=== PATIENT | female | born 1950 | race Caucasian/White ===

== ENCOUNTER 2019-03-05 14:51 | Inpatient (IN) ==
[2019-03-05] MEDS ORDERED: DILAUDID IV ONE (15:28)
[2019-03-05] MEDS ORDERED: PHENERGAN IM ONE (15:28)
--- NOTE | 2019-03-05 15:55 | Diag Imaging Result Doc PS360 ---
EXAM: ANKLE COMPLETE RIGHT HISTORY: fall TECHNIQUE: Right ankle, three views COMPARISON: None. FINDINGS: There is an oblique fracture through the distal fibula with mild displacement. Soft tissue swelling is present. No definite fracture to the distal tibia. There are calcaneal bone spurs. IMPRESSION: Distal fibular fracture. Electronically signed by Arjun Kern 03/05/2019 3:53 PM
--- NOTE | 2019-03-05 15:57 | Diag Imaging Result Doc PS360 ---
EXAM: TRAUMA SHOULDER LEFT HISTORY: fall TECHNIQUE: Left shoulder, two views COMPARISON: 11/02/2012 FINDINGS: There is a comminuted humeral head and neck fracture. The humeral shaft is displaced anteriorly. Portions of the humeral head remains in the glenoid. No separation to the acromioclavicular joint. IMPRESSION: Comminuted humeral head and neck fracture. Electronically signed by Arjun Kern 03/05/2019 3:55 PM
[2019-03-05 17:34] LABS: BASO# 0.03 X1000 (0.0-0.2); BASO% 0.2 % (0.0-0.8); EOS# 0.06 X1000 (0.0-0.7); EOS% 0.4 % (0.0-10.0); HEMATOCRIT 40.3 % (37.0-47.0); HEMOGLOBIN 13.2 g/dL (12.0-16.0); IMM GRAN# 0.02 X1000 (0.0-0.04); IMM GRAN% 0.1 % (0.0-0.5); LYMPH# 0.94 X1000 (1.2-3.4); LYMPH% 6.9 % (20.5-51.1); MCH 27.6 PG (27-31); MCHC 32.8 g/dL (33-37); MCV 84.1 FL (81-99); MONO# 0.64 X1000 (0.11-0.59); MONO% 4.7 % (1.7-9.3); MPV 11.8 FL (7.4-10.4); NEUT# 11.96 X1000 (1.4-6.5); NEUT% 87.7 % (42.2-75.2); PLT 273 X1000 (130-400); RBC 4.79 XMIL (4.2-5.4); RDW 13.9 % (11.5-14.5); WBC 13.65 X1000 (4.8-10.8)
[2019-03-05 17:45] LABS: AGAP 6; ALB/GLOB RATIO 1.2; ALBUMIN 3.8 g/dL (3.5-5.0); ALKALINE PHOSPHATASE 103 U/L (32-104); BUN 13 mg/dL (8-22); CALCIUM 9.3 mg/dL (8.8-10.2); CHLORIDE 105 mmol/L (98-107); COSMO 285; CREATININE 0.7 mg/dL (0.5-0.9); ESTIMATED GFR > 60; GLUCOSE 135 mg/dL (70-104); GOT 18 U/L (10-30); GPT 11 U/L (10-36); POTASSIUM 3.6 mmol/L (3.5-5.1); SODIUM 142 mmol/L (136-145); TCO2 31 mmol/L (25-35); TOTAL BILIRUBIN 0.15 mg/dL (0.20-1.00)
[2019-03-05] MEDS ORDERED: ULTRAM PO PRN (17:46)
--- NOTE | 2019-03-05 17:58 | PROVIDER DOCUMENTATION ---
This chart was entered by Jenni Hendricks Scribe, acting as scribe for Kayla Phillips MD. HPI-Musculoskeletal Pain/Inj - GENERAL Chief Complaint: Fall Stated Complaint: FALL Time Seen by Provider: 03/05/19 15:32 Source: patient - HX OF PRESENT ILLNESS-MUSKULOSKELTAL Nature of Presenting Problem: Patient is a 68 year old female who presents with left shoulder and right ankle pain after a fall. Patient states she lost her balance and fell back. Denies neck pain. States hit head. Denies LOC. Quality of Pain: reports: aching Severity in ED: mild Onset/Duration: just prior to arrival Timing: still present Modifying Factors: worse with: movement Any recent injury?: Yes (fall) Similar Symptoms Previously?: No Recently seen or treated by another doctor?: No - FALL INJURY Location of Pain/Injury: reports: upper extremity (left shoulder), lower extremity (right ankle) Pain Radiation: reports: no radiation Reason for Fall: reports: lost balance Symptoms prior to fall:: reports: none Loss of Consciousness: no loss of consciousness Injury Associated Symptoms: reports: denies symptoms - LOWER EXTREMITY PAIN/INJURY Lower Extremities Pain: ankle: right Context / Method of Injury: reports: fell Associated Symptoms: reports: denies symptoms - UPPER EXTREMITY PAIN/INJURY Extremities Pain Location: shoulder: left Context / Method of Injury: reports: fell Associated Symptoms: reports: denies symptoms Review of Systems - Adult - REVIEW OF SYSTEMS - ADULT Constitutional: reports: no symptoms reported. denies: chills, fever, fatique Eyes: reports: no symptoms reported Ears, Nose, Mouth & Throat: reports: no symptoms reported Cardiovascular: reports: no symptoms reported Respiratory: reports: no symptoms reported Gastrointestinal: reports: no symptoms reported Genitourinary: reports: no symptoms reported Musculoskeletal: reports: see HPI, other (left shoulder and right ankle pain). denies: back pain, neck pain Integumentary: reports: no symptoms reported Neurological: reports: see HPI, other (head injury without LOC.). denies: dizziness/vertigo, headache/migraines, numbness, seizure, syncope Psychiatric: reports: no symptoms reported Endocrine: reports: no symptoms reported Hematologic/Lymphatic: reports: no symptoms reported Allergic/Immunologic: reports: no symptoms reported All Other Systems: Reviewed and Negative Past History - Adult - PAST MEDICAL HISTORY-ADULT Review of Records: reports: Nursing Assessment Review, Medications Reviewed, Social history reviewed & non-contributory. Major Childhood Illnesses: reports: denies history Cardiovascular: reports: heart valve problem, hyperlipidemia, other (mitral valve prolapse) Respiratory: reports: sleep apnea Gastrointestinal: reports: GERD, IBS Obstetrical/Gynecological: reports: denies history Genitourinary: reports: kidney stones Musculoskeletal: reports: neck/back injury (neck surgery) Neurological: reports: denies history. denies: CVA, stroke deficits Endocrine/Immune: reports: denies history Other Conditions: reports: denies history - PRIOR SURGERIES/PROCEDURES Surgical/Procedure History: reports: cholecystectomy, hysterectomy, other (bladder surgery) - PRIOR HOSPITALIZATIONS Prior Hospitalizations: reports: none - IMMUNIZATION STATUS Childhood Immunizations: See Nurse Assessment Flu Vaccine: See Nurse Assessment - FAMILY HISTORY Family History: reviewed, not pertinent - SOCIAL HISTORY Smoking: denies Substance Use: denies Living Situation: family Physical Exam-Injury Related - Physical Exam-Injury Related Initial Vital Signs Reviewed: Yes General Appearance: alert, mild distress. negative: lethargic, slow to respond Neck: non-tender, normal inspection. negative: C-spine tenderness, limited range of motion, tender lateral Respiratory: chest non-tender, lungs clear, normal breath sounds. negative: crackles, rhonchi, wheezing Cardiovascular: normal peripheral pulses, regular rate, rhythm. negative: tachycardia, systolic murmur Abdominal Exam: normal bowel sounds, non tender, soft. negative: guarding, rebound Extremity: swelling (right ankle), tenderness (left shoulder), other (limited ROM of left shoulder due to pain.). negative: deformity, erythema Integumentary: normal color, warm/dry. negative: ecchymosis, erythema, jaundice, abrasion, laceration Neurologic: grossly normal. negative: aphasia, facial droop Psych/Mental Status: normal mood/affect, oriented x 3. negative: anxious Progress - PLAN OF CARE/RESULTS Progress/Plan/Lab Results: Vital Signs - 8 hr 03/05/19 14:58 03/05/19 15:21 03/05/19 15:29 Temperature 97.9 F Pulse Rate 68 Respiratory Rate 21 Blood Pressure 96/60 129/111 133/70 O2 Sat by Pulse Oximetry 98 100 99 03/05/19 15:31 03/05/19 15:40 03/05/19 15:50 Temperature Pulse Rate Respiratory Rate Blood Pressure O2 Sat by Pulse Oximetry 100 100 97 03/05/19 16:00 03/05/19 16:02 03/05/19 16:10 Temperature Pulse Rate Respiratory Rate Blood Pressure 140/79 O2 Sat by Pulse Oximetry 98 95 95 03/05/19 16:20 03/05/19 16:30 03/05/19 16:31 Temperature Pulse Rate Respiratory Rate Blood Pressure 153/96 O2 Sat by Pulse Oximetry 97 99 98 03/05/19 16:41 03/05/19 16:50 03/05/19 16:51 Temperature Pulse Rate Respiratory Rate Blood Pressure 153/96 O2 Sat by Pulse Oximetry 95 99 93 L 03/05/19 17:00 03/05/19 17:10 03/05/19 17:20 Temperature Pulse Rate Respiratory Rate Blood Pressure O2 Sat by Pulse Oximetry 91 L 100 100 Laboratory Results - last 24 hr 03/05/19 03/05/19 17:05 17:05 WBC 13.65 H RBC 4.79 Hgb 13.2 Hct 40.3 MCV 84.1 MCH 27.6 MCHC 32.8 L RDW Std Deviation 13.9 Plt Count 273 MPV 11.8 H Immature Gran % (Auto) 0.1 Neut % (Auto) 87.7 H Lymph % (Auto) 6.9 L [place] % (Auto) 4.7 Eos % (Auto) 0.4 Baso % (Auto) 0.2 Immature Gran # (Auto) 0.02 Neut # (Auto) 11.96 H Lymph # (Auto) 0.94 L [place] # (Auto) 0.64 H Eos # (Auto) 0.06 Baso # (Auto) 0.03 Sodium 142 Potassium 3.6 Chloride 105 Carbon Dioxide 31 Anion Gap 6 BUN 13 Creatinine 0.7 Estimated GFR/1.73 m2 > 60 BUN/Creatinine Ratio 19 Glucose 135 H Calculated Osmolality 285 Calcium 9.3 Total Bilirubin 0.15 L AST 18 ALT 11 Alkaline Phosphatase 103 Total Protein 7.0 Albumin 3.8 Globulin 3.2 Albumin/Globulin Ratio 1.2 Orders Category Date Time Status Admit - [facility] Routine AdmDCTranf 03/05/19 17:54 Active Nursing- MD Consult Request ROUTINE Care 03/05/19 17:48 Active MD [Physician/Provider Consults] Routine Cons 03/05/19 17:47 Ordered Regular Diet Diet 03/05/19 17:54 Active ANKLE COMPLETE RIGHT [RAD] Stat Exams 03/05/19 15:26 Completed CHEST-PORTABLE [RAD] Stat Exams 03/05/19 17:54 Ordered TRAUMA SHOULDER LEFT [RAD] Stat Exams 03/05/19 15:27 Completed CBC WITH ELECTRONIC DIFF [HEME] Stat Lab 03/05/19 17:05 Completed CMP [COMPREHENSIVE METABOLIC PANEL] [CHEM] Stat Lab 03/05/19 17:05 Completed TYPE & SCREEN [BBK] Stat Lab 03/05/19 17:23 Results 0.9% Sodium Chloride Inj [Ns] 1,000 ml Med 03/05/19 18:00 Active IV 50 mls/hr Acetaminophen [Tylenol] Med 03/05/19 17:54 Active 650 mg PO Q6H PRN PRN Gabapentin [Neurontin] Med 03/06/19 09:00 Active 300 mg PO TID Hydromorphone [Dilaudid] Med 03/05/19 15:28 Discontinued 1 mg IV NOW ONE Hydromorphone [Dilaudid] Med 03/05/19 17:46 Active 1 mg IV Q3H PRN PRN Ondansetron [Zofran] Med 03/05/19 17:54 Active 4 mg IV Q4H PRN PRN Pantoprazole [Protonix] Med 03/06/19 07:00 Active 40 mg PO DAILY@0700 Promethazine [Phenergan] Med 03/05/19 17:46 Active 12.5 mg IV Q4H PRN PRN Promethazine [Phenergan] Med 03/05/19 15:28 Discontinued 25 mg IM NOW ONE Sodium Chloride 0.9% Med 03/05/19 17:46 Active 10 ml INJ PRN PRN Tramadol [Ultram] Med 03/05/19 17:46 Active 50 mg PO Q6H PRN PRN EKG [EKG] Stat Ther 03/05/19 17:15 Ordered Transfer/Admit Order [TRANSFER] Routine Transfer 03/05/19 17:49 Ordered 3114 - ADY Segura for Hospitalist, states patient needs labs. 1801 - Dr. Phillips consulted with ADY Mathew for Hospitalist, about patient. Dr. Acosta accepted patient. Result Diagrams: 03/05/19 17:05 03/05/19 17:05 - EKG 1 Time of EKG reading by physician:: 17:21 EKG Read and Signed by:: Kayla Phillips EKG Interpretation (*Must complete 3 of following elements*): Normal Rate: 83 Rhythm: normal sinus rhythm [place]: normal QRS: normal VT Interval: normal ST Wave: normal Comments: normal ECG - XRAY 1 XRAY: Left XRAY Study: Shoulder Impression: See EMR Report ( EXAM: TRAUMA SHOULDER LEFT HISTORY: fall TECHNIQUE: Left shoulder, two views COMPARISON: 11/02/2012 FINDINGS: There is a comminuted humeral head and neck fracture. The humeral shaft is displaced anteriorly. Portions of the humeral head remains in the glenoid. No separation to the acromioclavicular joint. IMPRESSION: Comminuted humeral head and neck fracture. Electronically signed by Arjun Kern 03/05/2019 3:55 PM 03/05/19 1555 Interpreting Physician: Arjun Kern MD Dictated Date/Time: 03/05/19 1554 cc: Kayla Phillips MD; Dru Eduardo MD) 2 XRAY: Right XRAY Study: Ankle Impression: See EMR Report ( EXAM: ANKLE COMPLETE RIGHT HISTORY: fall TECHNIQUE: Right ankle, three views COMPARISON: None. FINDINGS: There is an oblique fracture through the distal fibula with mild displacement. Soft tissue swelling is present. No definite fracture to the distal tibia. There are calcaneal bone spurs. IMPRESSION: Distal fibular fracture. Electronically signed by Arjun Kern 03/05/2019 3:53 PM 03/05/19 1553 Interpreting Physician: Arjun Kern MD Dictated Date/Time: 03/05/19 1552 cc: Kayla Phillips MD; Dru Edaurdo MD) - CONSULTS/PCP/HOSPITALIST Notification #1 *Consult/PCP/Hospitalist*: ADY Mathew for Hospitalist Time Discussed: 16:42 Reason/Comments: Dr. Phillips consulted with Priyanka about patient. Consult Disposition: other (consult with ortho) #2 Consult: Dr. Liu Time Discussed: 16:51 Reason/Comments: Dr. Phillips consulted Dr. Liu about patient. Consult Disposition: other (Dr. Liu states he will consult on patient.) #3 Consult: ADY Mathew for Hospitalist Time Discussed: 17:10 Reason/Comments: Dr. Phillips consulted with Priyanka about patient. Consult Disposition: Will see in ED, Admit Departure - Departure Date of Disposition Decision: 03/05/19 Time of Disposition Decision: 18:03 DIAGNOSIS: Fracture of left humerus, Fracture of right fibula, Abrasion head Disposition: ADMITTED INPATIENT 09 Certified Medical Emergency: Urgent Condition: Good Referrals and Follow-Ups: Dru Eduardo MD [Primary Care Provider] - - Critical Care Note This patient required my direct & personal management of CC.: No Attestation - Physician/ GERDA Attestation The physician spent face to face time with patient:: Yes Advanced Practice Provider documentation review:: Supervising physician onsite and consulted in the evaluation and care of this patient. The physician did have a face to face encounter with the patient. This chart was documented by the indicated scribe, (Jenni Hendricks Scribe) and accurately reflects the services I performed and decisions made by me, Kayla Phillips MD, as attested by the provider's signature.
[2019-03-05] MEDS ORDERED: NS 1,000 ML IV SCH (18:00)
--- NOTE | 2019-03-05 18:22 | Diag Imaging Result Doc PS360 ---
EXAM: CHEST-PORTABLE HISTORY: r/o pna TECHNIQUE: Chest single view COMPARISON: 10/02/2017 FINDINGS: The lungs are well expanded. The heart is not enlarged. The vessels are not distended. There are left basilar infiltrates. No effusion identified. IMPRESSION: Left basilar pneumonia. Electronically signed by Arjun Kern 03/05/2019 6:19 PM
[2019-03-05] MEDS ORDERED: OXY IR PO SCH (19:00)
--- NOTE | 2019-03-05 19:14 | HISTORY AND PHYSICAL ---
ADDENDUM: I agree with most components of history, physical, assessment and plan. In brief, Ms. Mansfield is a 68-year-old lady, with past medical history of chronic gastroesophageal reflux disease and neuropathy, who came in after a mechanical fall. She was found to have a distal fibular fracture on the right lower extremity, as well as comminuted humeral head and neck fracture on the left. She also has prior history of obstructive sleep apnea. Currently, patient is in pain because of left shoulder and right ankle pain. She denies any syncope episodes. She states that she just came out of her truck and missed a step and fell down. PHYSICAL EXAMINATION: VITAL SIGNS: Temperature 97.9 degrees, pulse 68, blood pressure 150/90, saturating 100% on room air. GENERAL: She is in mild distress because of pain. HEENT: Oral cavity is moist. No pharyngeal congestion on antibiotic. LUNGS: No wheeze, rhonchi, crackles. HEART: S1, S2 normal. No murmur, rub, or gallop. ABDOMEN: Soft, nontender. EXTREMITIES: She does have right ankle edema where she has fracture and that is tender to palpation. Her left upper extremity is in flexion at elbow joint as well as adduction at shoulder joint. She has intact dorsalis pedis and radial pulses. She is able to wiggle both lower extremity and upper extremity toes.. LABS: Significant for mild leukocytosis. Normal hemoglobin, hematocrit, and platelet count. Normal electrolytes. MICROBIOLOGY: No data. IMAGING: Ankle x-ray suggests distal fibular fracture. Shoulder x-ray suggests a comminuted humeral head and neck fracture on the left. Chest x-ray suggests lungs are well expanded. The heart is not enlarged. The vessels are not distended. There is left basilar infiltrate without any effusion. ASSESSMENT AND PLAN: 1. Left lower lobe pneumonia with persistent cough of about 2 weeks duration and subjective feeling of shortness of breath. 2. Mechanical fall with distal fibular fracture on the right and left-sided comminuted humeral head fracture. 3. Obstructive sleep apnea. PLAN: 1. I will start patient on intravenous ceftriaxone and azithromycin. 2. I will keep her on intravenous fluids. 3. We will give her intravenous and oral pain medications as needed. 4. Continue home CPAP. 5. Pending orthopedic recommendations for surgery over left shoulder fracture. 4. Plan of care discussed with the patient and her daughter at bedside. All of their questions have been answered. cc: Arturo Acosta MD MTDD
--- NOTE | 2019-03-05 19:38 | HISTORY AND PHYSICAL ---
PRIMARY CARE PROVIDER: Dr. Dru Eduardo. CHIEF COMPLAINT: Fall with left shoulder and right ankle pain. HISTORY OF PRESENT ILLNESS: Ms. Aleisha Mansfield is a 68-year-old female with a medical history of obstructive sleep apnea with CPAP at night, stool incontinence recently being worked up by Dr. Suero, GERD, history of upper GI bleed who is now here with complaints of having a fall where she was getting out of a truck, helping her daughter with metal scraps but essentially lost her footing and went rolling down a hill, felt her left shoulder pop and felt her right ankle with pain afterwards. Dr. Liu has been notified by the ER physician and staff after imaging was performed, which shows distal fibular fracture on the right ankle and then on the left shoulder a comminuted humeral head and neck fracture. So we will admit the patient for pain control at this time and consult Dr. Liu. PAST MEDICAL HISTORY: 1. Migraines. 2. Frequent urinary tract infections. 3. Frequent infected sebaceous cysts. 4. GERD. 5. Incontinence of stool, currently being worked up by Dr. Suero. Clostridium difficile studies earlier this month were negative. 6. Hypoglycemia. 7. Obstructive sleep apnea; wears CPAP at night. 8. History of upper GI bleed. PAST SURGICAL HISTORY: 1. Recent colonoscopy earlier this month. 2. Cervical surgery requiring plates and bone placement. 3. Bladder surgery x 2. 4. Hysterectomy. 5. section. 6. Teo fundoplication in 1998. 7. Laparoscopic cholecystectomy. SOCIAL HISTORY: Denies alcohol, tobacco or illicit drug use. She lives at home with her who has mild dementia. He is a retired preacher. FAMILY HISTORY: Father of an acute myocardial infarction at age 57. Mother had multiple strokes, vascular dementia and when she , they found kidney cancer. ALLERGIES: Codeine, hydrocodone, Versed, penicillin, sulfa. HOME MEDICATIONS: 1. Neurontin 300 mg p.o. t.i.d. 2. Protonix 40 mg p.o. daily. REVIEW OF SYSTEMS: A 14-point review of systems was completed and all are negative except for those mentioned above in HPI. She states she has had over the past month some upper chest congestion that has caused her to have frequent coughing and chest wall pain from the frequent coughing. She said that has actually started clearing up over the last 24 hours. Complains of a great deal of pain in her left shoulder and her right ankle. Otherwise no other complaints. PHYSICAL EXAMINATION: VITAL SIGNS: Temperature 97.9 degrees, heart rate 68, respiratory rate 21, blood pressure 153/96, oxygen saturation 100% on room air. Height 5 feet 9 inches, weight 184 pounds with BMI of 27.7. GENERAL: Ms. Aleisha Mansfield is a 68-year-old female. She is in no acute distress other than the pain she is feeling from the fractures. She is able to answer questions appropriately. HEENT: Atraumatic, normocephalic. Pupils equal, round and reactive to light. Extraocular movements intact. Mucous membranes are dry. NECK: Trachea is midline. CARDIOVASCULAR: S1, S2. Regular rate and rhythm. No murmurs, rubs or gallops. No lower extremity edema except for right ankle swelling and left shoulder swelling. Negative for JVD or carotid bruits. PULMONARY: Clear to auscultate bilateral breath sounds. No accessory muscle use or work of breathing noted. GI: Soft, nontender, nondistended. Positive bowel sounds x 4. EXTREMITIES: Full range of motion of the left lower extremity and right upper extremity. Limited movement of the left upper extremity and the right lower extremity secondary to fractures. NEUROLOGICAL: Alert and oriented x 3. Follows commands. Sensory is intact. SKIN: Warm, dry and intact. LABORATORY DATA: White blood cell count 13,000, hemoglobin 13, hematocrit 40, platelet count 273. Sodium 142, potassium 3.6, BUN 30, creatinine 0.7, glucose 135, calcium 9.3, bilirubin 0.15, AST 18, ALT 11, albumin 3.8. IMAGING: Complete right ankle x-rays show distal fibular fracture. Left shoulder 2 views trauma shoulder x-ray shows comminuted humeral head and neck fracture. ASSESSMENT AND PLAN: 1. Mechanical fall; patient lost her balance and went rolling down a hill resulting in 2 separate fractures. 2. Comminuted humeral head and neck fracture of the left shoulder. Right distal fibular fracture of the right ankle. Dr. Liu has been consulted. We will order medications for pain control. We will do oral Ultram and then IV Dilaudid for now. Phenergan and Zofran for nausea control. Apparently narcotics really make her nauseated. 3. Recent stool incontinence. Being worked up by Dr. Suero earlier this month. She was unable to give a specific diagnosis. He has apparently done several microbiology labs. Clostridium difficile toxin and antigen were both negative. The ova and parasites and trichogram stain are both negative. Cryptosporidium is negative. Apparently she had a colonoscopy earlier this month. She was unclear as to what the results were. 4. Gastroesophageal reflux disease. We will continue her oral Protonix daily. 5. History of upper GI bleed but hemoglobin and hematocrit are stable. 6. Obstructive sleep apnea. Wears CPAP at night. We will continue her home CPAP. 7. Leukocytosis, like inflammatory response to the fractures. 8. DVT prophylaxis. We will use sequential compression devices for now. Dictated by ADY Johansen for Arturo Acosta MD cc: ADY Johansen MD I agree with most components of history, physical, assessment and plan. A separate addendum has been dictated. MTDKaiden
[2019-03-05] MEDS: ZOFRAN IV PRN (19:43)
[2019-03-05] MEDS: DILAUDID IV PRN ×2 (19:43→23:19)
[2019-03-05] MEDS: TYLENOL PO PRN (20:37)
[2019-03-05] MEDS: LEVAQUIN 750 MG/D5W 750 MG/150 ML IVPB IV SCH (20:38)
[2019-03-05] MEDS: SODIUM CHLORIDE 0.9% INJ PRN (23:19)
[2019-03-05] MEDS: PHENERGAN IV PRN (23:19)
[2019-03-06] MEDS ORDERED: CALMOSEPTINE OINTMENT TOP PRN (01:08)
[2019-03-06] MEDS: DILAUDID IV PRN ×5 (03:17→20:56)
[2019-03-06] MEDS: PHENERGAN IV PRN ×5 (03:17→20:58)
[2019-03-06] MEDS: SODIUM CHLORIDE 0.9% INJ PRN ×4 (03:17→17:32)
[2019-03-06 03:36] LABS: URINE SOURCE CLEAN CATCH
[2019-03-06 03:38] LABS: BILIRUBIN URINE NEGATIVE (NEGATIVE); BLOOD URINE NEGATIVE (NEGATIVE); COLOR YELLOW; GLUCOSE URINE TRACE mg/dL (NEGATIVE); KETONE URINE NEGATIVE (NEGATIVE); LEUKOCYTES URINE LARGE (NEGATIVE); NITRITE URINE NEGATIVE (NEGATIVE); PROTEIN URINE TRACE mg/dL (NEGATIVE); TURBIDITY URINE CLEAR (CLEAR); UROBILINOGEN URINE NORMAL (NORMAL)
[2019-03-06 03:40] LABS: UR EPITHELIAL CELLS <10 /HPF (<10); URINE BACTERIA NEGATIVE /HPF; URINE RBC <10 /HPF (<10); URINE WBC 20-40 /HPF (<10)
[2019-03-06 06:25] LABS: BASO# 0.02 X1000 (0.0-0.2); BASO% 0.2 % (0.0-0.8); EOS# 0.03 X1000 (0.0-0.7); EOS% 0.3 % (0.0-10.0); HEMATOCRIT 35.5 % (37.0-47.0); HEMOGLOBIN 11.3 g/dL (12.0-16.0); LYMPH# 1.42 X1000 (1.2-3.4); LYMPH% 12.8 % (20.5-51.1); MCHC 31.8 g/dL (33-37); MCV 84.9 FL (81-99); MONO# 0.73 X1000 (0.11-0.59); MONO% 6.6 % (1.7-9.3); MPV 11.6 FL (7.4-10.4); NEUT# 8.91 X1000 (1.4-6.5); NEUT% 80.1 % (42.2-75.2); PLT 243 X1000 (130-400); RBC 4.18 XMIL (4.2-5.4); RDW 13.8 % (11.5-14.5); WBC 11.11 X1000 (4.8-10.8)
[2019-03-06 06:36] LABS: INR 1.02; PROTIME 14.2 Seconds (11.0-16.0); PTT 25.6 Seconds (22.3-41.8)
[2019-03-06 06:47] LABS: AGAP 8; ALB/GLOB RATIO 1.3; ALBUMIN 3.5 g/dL (3.5-5.0); ALKALINE PHOSPHATASE 94 U/L (32-104); BUN 9 mg/dL (8-22); CALCIUM 8.4 mg/dL (8.8-10.2); CHLORIDE 105 mmol/L (98-107); COSMO 276; CREATININE 0.5 mg/dL (0.5-0.9); ESTIMATED GFR > 60; GLUCOSE 128 mg/dL (70-104); GOT 16 U/L (10-30); GPT 7 U/L (10-36); MAGNESIUM 1.9 mg/dL (1.5-2.7); POTASSIUM 3.6 mmol/L (3.5-5.1); SODIUM 138 mmol/L (136-145); TCO2 25 mmol/L (25-35); TOTAL BILIRUBIN 0.42 mg/dL (0.20-1.00); TOTAL PROTEIN 6.3 g/dL (6.3-8.3)
--- NOTE | 2019-03-06 07:42 | EKG Report ---
Test Performed on : 03/05/2019 5:21:26 PM Test Reason : rythm evaluation Blood Pressure : / mmHG Vent. Rate : 083 BPM Atrial Rate : 083 BPM P-R Int : 146 ms QRS Dur : 080 ms QT Int : 412 ms P-R-T Axes : 065 002 043 degrees QTc Int : 484 ms Normal sinus rhythm. Normal ECG When compared with ECG of 02-OCT-2017 12:19, No significant change was found Unconfirmed Result
[2019-03-06] MEDS: NEURONTIN PO SCH ×3 (08:18→20:58)
[2019-03-06] MEDS: PROTONIX PO SCH (08:19)
--- NOTE | 2019-03-06 08:42 | ORTHOPAEDICS CONSULTATION ---
DATE: 03/06/2019 HISTORY OF PRESENT ILLNESS: Ms. Mansfield is a 68-year-old female who fell yesterday, on 03/05/2019. She was found to have a left proximal humerus fracture and a right ankle fracture. She was admitted per the hospitalist service secondary to not having a lot of help at home and possibly requiring rehab assistance. She mainly complains of pain at the right ankle and the left shoulder. She did hit her head a little bit but she says that it really does not bother her that much at this point. PAST MEDICAL HISTORY: Urinary tract infections, reflux, obstructive sleep apnea, stool incontinence. PAST SURGICAL HISTORY: Colonoscopy, anterior cervical diskectomy and fusion, two bladder surgeries, section, hysterectomy, cholecystectomy. SOCIAL HISTORY: She denies tobacco or alcohol use. FAMILY HISTORY: Positive for heart problems. ALLERGIES: Codeine, hydrocodone, Versed, penicillin, and sulfa. HOME MEDICATIONS: Neurontin and Protonix. REVIEW OF SYSTEMS: Positive for left shoulder pain and right ankle pain. All other systems are essentially negative. PHYSICAL EXAMINATION: General: Well-developed female. She is lying in bed this morning, in no acute distress. Head and Neck: Normocephalic, atraumatic. Respirations: Nonlabored breathing. Cardiovascular: Regular pulse. Abdomen: Nondistended. Right Lower Extremity Examination: She has tenderness to palpation all around the ankle, swelling all around the ankle. There are some ecchymoses laterally. I do not see any open areas. She is able to move her toes. She has good sensation to light touch to the toes and a 2+ DP pulse. Left Upper Extremity Examination: She has tenderness to palpation at the shoulder. There are some ecchymoses in that area. All her hand intrinsics are intact. She had just a little bit of numbness to the fingertips. She does have a good 2+ radial pulse. No open areas seen. RADIOGRAPHS: Three-view of the right ankle shows a distal fibula fracture that looks comminuted. There is just a little bit of medial clear space widening. Left shoulder x-rays were reviewed which show at least a 3-part proximal humerus fracture. It looks like on the wide view that the shaft is displaced from the head. ASSESSMENT: 1. Left proximal humerus fracture, 3 part. 2. Right bimalleolar equivalent ankle fracture. PLAN: I discussed with Ms. Mansfield about her injuries. I do recommend surgical intervention for the ankle because we will need to get her up and on it sooner rather than later since she is not going to be able to really use a walker well because of her proximal humerus fracture so we will plan on open reduction and internal fixation of her right ankle with possible deltoid repair. It depends on timing when to get this done. She does have pneumonia and is being treated by the hospitalist service for that so we will coordinate with them when would be the best time for her to undergo surgical intervention for her ankle. I am going to talk with my partner, Dr. Pike, about her shoulder. More than likely, she will end up having to have a reverse total shoulder arthroplasty for this fracture. This will probably be scheduled from an elective standpoint when she is discharged from the hospital. She is nonweightbearing to the right lower extremity and left upper extremity. cc: Reagan Liu MD
--- NOTE | 2019-03-06 12:40 | PROGRESS NOTE ---
DATE: 03/06/2019 INTERVAL HISTORY: The patient was evaluated by Orthopedic team, and orthopedic team recommends open reduction, internal fixation of the right distal fibular fracture with possible deltoid repair once her pneumonia is under control. There were also elective plans of reverse total shoulder arthroplasty of left comminuted humerus fracture in the future. Currently, she is nonweightbearing on left upper extremity and right lower extremity. The patient did not have any fever spike. SUBJECTIVE: The patient states that she had a rough night because of pain. However, she is denying any chest pain which is significantly decreased from yesterday. She is denying any shortness of breath. She is denying any more cough. She states that she still gets some chest pain when she is trying to take deep breath. I explained to her about pleural inflammation because of pneumonia contributing to it. She also has a family member at bedside and discussed with them that considering she is no longer coughing and not feeling short of breath, and her white count is coming down would mean that her pneumonia is improving. VITALS: Temperature 98.6 degrees, pulse 91, respiratory rate 16, blood pressure 140/73 and saturating 93 to 97 percent on room air. PHYSICAL EXAMINATION: General: She is in mild distress because of pain. HEENT: Oral cavity is dry. No pharyngeal congestion. Lungs: Air entry bilaterally equal. No wheezing, rhonchi or crackles on anterior aspect of chest examination. Heart: S1, S2 normal. No murmur, rub, or gallop. Abdomen: Soft, nontender. Extremities: She has right ankle edema where she has a fracture, which is tender to palpation to some extent. Her left upper extremity is currently in flexion at elbow joint, which she is resting on her abdomen. There is abduction at the shoulder joint. Her bilateral radial and dorsalis pedis pulses are equal and adequate. She had a good perfusion on touch. LABORATORY: Analysis suggests improving leukocytosis to 11,000, and hemoglobin of 11.3. Normal platelet count. Normal coagulation. Normal electrolytes. Her blood glucose is 128. Though she has pyuria, she did not have any symptoms from it. Urine culture still pending. IMAGING: No new imaging today. Chest x-ray, however, yesterday did detect left basilar pneumonia. ASSESSMENT AND PLAN: 1. Left lower lobe pneumonia. Follow up with urine Streptococcus and Legionella antigen. The patient denies any more cough, and her WBC count is decreasing. My plan is to continue intravenous levofloxacin as she is showing good improvement on this antibiotic. 2. Mechanical fall with distal fibular fracture on right lower extremity and left-sided comminuted humeral head fracture. Orthopedic team is on board, and is planning open reduction internal fixation of right distal fibular fracture with possible deltoid repair. continue enoxaparin for deep venous thrombosis prophylaxis; continue hydromorphone and oxycodone for pain at the shoulder and ankle site. 3. Preoperative risk assessment. The patient denies known history of coronary artery disease, congestive heart failure, cerebrovascular accident. She does not have insulin-dependent diabetes mellitus or kidney dysfunction. Her reverse cardiac risk index is 0. She is at low risk for perioperative cardiovascular event. Considering her symptoms of cough is improving and her WBC count is decreasing, it would mean her pneumonia is improving on current antibiotics. My plan is to continue intravenous levofloxacin, and from medical perspective if she does not develop any fever episode today, then it should be okay for her to proceed with surgery tomorrow on 03/07. Her EKG also normal sinus rhythm. 4. Obstructive sleep apnea. I will continue her home CPAP; continue pantoprazole for chronic GERD. 5. Disposition: Patient remains inside the hospital as we manage her with her current fractures. Plan of care discussed with the patient and her family at bedside. All of the questions have been answered. cc: Arturo Acosta MD MTDD
[2019-03-06] MEDS: BENADRYL PO PRN ×2 (15:11→23:35)
[2019-03-06] MEDS: LOVENOX SUBQ SCH (15:12)
[2019-03-06] MEDS: LEVAQUIN 750 MG/D5W 750 MG/150 ML IVPB IV SCH (18:50)
[2019-03-06] MEDS: OXY IR PO PRN (23:35)
[2019-03-06] MEDS: TYLENOL PO PRN (23:36)
[2019-03-07] MEDS: PHENERGAN IV PRN ×3 (06:25→23:35)
[2019-03-07] MEDS: DILAUDID IV PRN ×5 (06:25→23:35)
[2019-03-07] MEDS: PROTONIX PO SCH (07:58)
[2019-03-07] MEDS: ZOFRAN IV PRN ×2 (09:57→17:53)
[2019-03-07] MEDS: NEURONTIN PO SCH ×5 (10:04→21:33)
[2019-03-07] MEDS ORDERED: DIPRIVAN 1% ONE (11:02)
[2019-03-07] MEDS ORDERED: KEFZOL 1 GM/D5W 1 GM/50 ML IVPB ONE (12:08)
[2019-03-07] MEDS ORDERED: MARCAINE 0.5% ONE (12:26)
[2019-03-07] MEDS ORDERED: XYLOCAINE 1% ONE (12:26)
[2019-03-07] MEDS ORDERED: ZOFRAN ONE (12:43)
[2019-03-07] MEDS ORDERED: DECADRON ONE (12:43)
[2019-03-07] MEDS: LOVENOX SUBQ SCH (12:49)
[2019-03-07 13:20] LABS: URINE SOURCE CATH
[2019-03-07 13:44] LABS: BILIRUBIN URINE NEGATIVE (NEGATIVE); BLOOD URINE NEGATIVE (NEGATIVE); COLOR YELLOW; GLUCOSE URINE NEGATIVE (NEGATIVE); KETONE URINE NEGATIVE (NEGATIVE); LEUKOCYTES URINE NEGATIVE (NEGATIVE); NITRITE URINE NEGATIVE (NEGATIVE); PH URINE 6.5; PROTEIN URINE NEGATIVE (NEGATIVE); SP GRAVITY URINE 1.015; TURBIDITY URINE CLEAR (CLEAR); UROBILINOGEN URINE NORMAL (NORMAL)
[2019-03-07 13:47] LABS: UR EPITHELIAL CELLS <10 /HPF (<10); URINE BACTERIA NEGATIVE /HPF; URINE RBC <10 /HPF (<10); URINE WBC <10 /HPF (<10)
[2019-03-07] MEDS ORDERED: DILAUDID ONE (13:48)
[2019-03-07] MEDS ORDERED: LR 1,000 ML ONE (13:55)
--- NOTE | 2019-03-07 14:49 | ORTHOPAEDICS PROGRESS NOTE ---
DATE: 03/07/2019 SUBJECTIVE DATA: Ms. Mansfield is sitting comfortably in bed. She is complaining of left shoulder pain. She says that really bothers her more than anything. She is ready to proceed with her right ankle surgery today. OBJECTIVE DATA: Right lower extremity exam: She does have tenderness to palpation both over the lateral malleolus and the deltoid. She does have some generalized swelling. There are no skin ulcerations or abrasions. She has good sensation to the foot. ASSESSMENT: 1. Left proximal humerus fracture, 3 part. 2. Right bimalleolar ankle fracture. PLAN: We are planning to proceed with ORIF of the right ankle today. Dr. Liu discussed the procedure, risks, and benefits in great detail with her. Risks include, but not limited to, damage to nerves, arteries, and veins, malunion, nonunion, hardware related issue, continued pain, DVT, and risk of general anesthesia. The patient understands and wished to proceed. There is family at her bedside. Unfortunately, she does also have that left humerus fracture. We will plan on treating this as an outpatient. We will get her set up to see Dr. Pike when she is discharged from the hospital. She will be nonweightbearing to this right lower extremity. We will plan to resume her Xarelto postoperatively. Dictated by ADY Felder for Reagan Liu MD cc: ADY Felder MD
[2019-03-07] MEDS: BENADRYL PO PRN ×2 (15:48→23:35)
--- NOTE | 2019-03-07 17:43 | PROGRESS NOTE ---
DATE: 03/07/2019 INTERVAL HISTORY: Patient underwent open reduction internal fixation of right side distal fibular fracture, which she tolerated well. I am seeing her postoperatively. Her family is at bedside. She denies any pain at the moment on the right lower extremity. SUBJECTIVE: The patient says she still has a little pain on the left rib cage when she tries to take a deep breath. VITAL SIGNS: Temperature of 100.2 degrees postoperatively, pulse of 90, respiratory rate 12, blood pressure 124/67, saturating 95% on room air. PHYSICAL EXAMINATION: General: Does not appear in any acute distress. She has an anxious look on her face. Examination is limited as her left upper extremity is in a sling, covering her left side. HEENT: Oral cavity is moist. Chest: She does appear to have crackles in the left inframammary region. Adequate air entry. Right hemithorax. No wheeze or rhonchi. Abdomen: Soft, nontender. Extremities: No lower extremity edema. Her right lower extremity is in cast. She has intact circulation on the toes as they are warm to touch. Her radialis pulses are bilaterally equal and adequate. LABS: No new labs today. She has micro no new microbiological data. ASSESSMENT AND PLAN: 1. Left lower lobe pneumonia. Urine streptococcal and Legionella antigen has been negative. Continue intravenous levofloxacin. Depending on her course, I might consider getting another chest x-ray. I will repeat WBC count tomorrow. 2. Mechanical fall without any syncope, with a distal fibular fracture on the right, status post open reduction internal fixation on March 07, 2019. Continue pain regimen with intravenous hydromorphone and p.o. oxycodone. Continue enoxaparin for DVT prophylaxis. Plan is to resume her on Xarelto at the time of discharge. 3. Left comminuted humeral head fracture. Orthopedic team is planning outpatient arthroplasty in the future. 4. Others. Obstructive sleep apnea. The patient is using her home CPAP machine and would like to get connected with a asphalt raker since she has not seen 1 for many years. I will provide her a referral at the time of discharge; continue pantoprazole for chronic GERD. 5. Disposition. I will continue to monitor the patient inside the hospital, pending further orthopedic recommendation. Plan of care discussed with her and multiple other family members. All of their questions have been answered. cc: Arturo Acosta MD
--- NOTE | 2019-03-07 18:38 | OPERATIVE NOTE ---
PROCEDURE DATE: 03/07/2019 PREOPERATIVE DIAGNOSES: 1. Right distal fibula fracture. 2. Right deltoid tear. POSTOPERATIVE DIAGNOSES: 1. Right distal fibula fracture. 2. Right deltoid tear. PROCEDURE: 1. Right open reduction internal fixation, fibula. 2. Right deltoid repair. SURGEON: Reagan Liu MD SPANISH LECTURER: ADY Felder, who was an integral part of the case, helping with all aspects of the case, helping to increase our OR efficiency greatly. ANESTHESIA: General with LMA. TOURNIQUET TIME: About an hour. IMPLANTS: 1. Medline one-third tubular plate and screws. 2. [employer] JuggerKnot suture anchors x2. DISPOSITION: To PACU, hemodynamically stable. INDICATION FOR PROCEDURE: Ms. Mansfield is a 68-year-old female, who fell out of her truck getting in. She ended up fracturing her ankle and her left shoulder. I discussed with her about operative intervention on the ankle, and she expressed understanding and wished to proceed. DESCRIPTION OF PROCEDURE: Ms. Mansfield was identified in the preoperative holding area. The right ankle was marked as the correct surgical site. She was then wheeled to the operating room and placed supine on the operating table. All bony prominences were well padded. She was induced under general anesthesia. LMA was placed. Tourniquet was placed to the right thigh. Right lower extremity was then prepped with chlorhexidine gluconate scrub and then ChloraPrep, draped in the normal sterile fashion. A surgical pause was performed. We identified the correct patient, correct side, and the correct procedure. Preoperative antibiotics were given. Esmarch was used to exsanguinate the right lower extremity and tourniquet was inflated to 300 mmHg. Total tourniquet time was about a hour. I made an incision over the distal fibula. Dissection was carried down. Identified the fracture site very easily. I cleaned out the fracture so that we could get a good reduction. I used a pointed reduction clamp to anatomically reduce it. I used a lag screw to hold that together. I then used a one-third tubular plate as an antiglide plate posteriorly. I secured it with 3 screws proximally and then 2 screws distally to help hold rotation. Fluoroscopic imaging showed that we had a really good anatomic reduction, length looked good, and the joint looked good as well. All hardware looked to be in good position. External rotation stress test did open up a little bit medially, so I made an incision medially, dissected down, and the superficial deltoid was torn. It looked like the deep deltoid fibers were still intact. I ended up using 2 JuggerKnot suture anchors and repaired the deep deltoid back to bone and then used 0 Vicryl over the top of it to help reinforce that whole area. We then did another external rotation stress test and that actually looked really good. Final images were taken, which showed we had good position of everything and anatomic reduction. The ankle joint looked really good. There was no diastasis at that time, even with the external rotation stress test. We then closed everything in a layered fashion with 0 Vicryl for the deep layers, 2-0 Vicryl for the subcutaneous, and nylon on the skin. Adaptic, 4x4s, ABD, Sof-Rol, and posterior splint were applied. Tourniquet was let down. Patient had good capillary refill return to the toes. She was then awoken from general anesthesia, moved to her own bed, and taken to PACU in stable condition. PLAN: Postoperatively, she will be nonweightbearing of the right lower extremity and nonweightbearing of the left upper extremity. cc: Reagan Liu MD
[2019-03-07] MEDS: LEVAQUIN 750 MG/D5W 750 MG/150 ML IVPB IV SCH (19:03)
[2019-03-07] MEDS: TYLENOL PO PRN (21:33)
[2019-03-07] MEDS: OXY IR PO PRN (21:33)
[2019-03-08] MEDS: PHENERGAN IV PRN ×4 (03:15→20:14)
[2019-03-08] MEDS: DILAUDID IV PRN ×6 (03:16→21:55)
[2019-03-08] MEDS: OXY IR PO PRN ×4 (04:15→16:33)
[2019-03-08] MEDS: TYLENOL PO PRN (04:15)
[2019-03-08] MEDS: BENADRYL PO PRN ×2 (06:47→19:24)
[2019-03-08] MEDS: PROTONIX PO SCH (06:47)
[2019-03-08 07:05] LABS: BASO# 0.01 X1000 (0.0-0.2); BASO% 0.1 % (0.0-0.8); HEMATOCRIT 34.3 % (37.0-47.0); HEMOGLOBIN 10.9 g/dL (12.0-16.0); IMM GRAN# 0.03 X1000 (0.0-0.04); IMM GRAN% 0.3 % (0.0-0.5); LYMPH# 1.51 X1000 (1.2-3.4); LYMPH% 12.9 % (20.5-51.1); MCH 27.5 PG (27-31); MCHC 31.8 g/dL (33-37); MCV 86.4 FL (81-99); MONO# 0.82 X1000 (0.11-0.59); MPV 11.6 FL (7.4-10.4); NEUT% 79.7 % (42.2-75.2); PLT 238 X1000 (130-400); RBC 3.97 XMIL (4.2-5.4); RDW 13.6 % (11.5-14.5); WBC 11.67 X1000 (4.8-10.8)
[2019-03-08 07:10] LABS: AGAP 11; BUN 8 mg/dL (8-22); CALCIUM 8.7 mg/dL (8.8-10.2); CHLORIDE 103 mmol/L (98-107); COSMO 283; CREATININE 0.7 mg/dL (0.5-0.9); ESTIMATED GFR > 60; GLUCOSE 119 mg/dL (70-104); POTASSIUM 3.9 mmol/L (3.5-5.1); SODIUM 142 mmol/L (136-145); TCO2 28 mmol/L (25-35)
[2019-03-08] MEDS: ZOFRAN IV PRN ×2 (09:29→16:32)
[2019-03-08] MEDS: NEURONTIN PO SCH ×3 (09:29→16:33)
[2019-03-08] MEDS: PERIDEX MT SCH ×2 (09:33→21:55)
--- NOTE | 2019-03-08 10:13 | ORTHOPAEDICS PROGRESS NOTE ---
DATE: 03/08/2019 SUBJECTIVE: Ms. Mansfield is sitting comfortably in bed. She states overall she feels much better. She still is having some pain but overall is better than yesterday. Most of her pain is still in that left shoulder. OBJECTIVE DATA: Right lower extremity exam, the surgical splint is in place. It is clean, dry, and intact. She is able to wiggle the toes. She has good sensation to the lower extremity. Left upper extremity examination, she is in a sling. She does have tenderness to palpation of that shoulder still. Her hand intrinsics are intact. ASSESSMENT: 1. Status post right open reduction internal fixation ankle. 2. Left proximal humerus fracture, 3-part. PLAN: From an orthopedic standpoint, we are good with Ms. Mansfield's discharge. We are going to continue to work on her pain control. She is to be nonweightbearing to the right lower extremity and the left upper extremity. We knew this could make mobilization and rehabilitation difficult. It does look like we are going to get her to a rehab facility. We are definitely in agreement with that. We will follow up with her for the ankle in [address] her [address] Pike will follow up with her in the office for that left shoulder. The plan will likely be for a left total shoulder replacement. If there are any questions or concerns, please call the office. Dictated by ADY Felder for Reagan Liu MD cc: ADY Felder MD
[2019-03-08] MEDS: LOVENOX SUBQ SCH (12:06)
--- NOTE | 2019-03-08 16:24 | PROGRESS NOTE ---
DATE: 03/08/2019 SUBJECTIVE: This patient is lying comfortably in bed. Family members at the bedside. She is awake, alert. She is oriented, but sometimes her answers are slow, probably because of the pain medication. She is complaining of left right ankle pain and left shoulder pain. OBJECTIVE: Vital Signs: Temperature 98.3 degrees, pulse 99, respiratory rate 16, blood pressure 135/68, oxygen saturation 98 on room air. HEENT: Head normocephalic, no trauma. PERRLA. Neck: Supple. No JVD. No masses. Central trachea. Chest: Clear to auscultation. No wheezing. No rales. She does have some crepitus at the level of the left lower lung. Abdomen: Soft, nontender, nondistended. No hepatosplenomegaly. Extremities: She has a splint on the right leg due to ankle fracture. She is able to wiggle her toes. I do not see any vascular or neurological problems. Left shoulder has been placed in a sling, painful to palpation. Neurological: The patient is alert. She is oriented x3. She is following commands. Sometimes her answers are slow, probably due to pain medication. LABORATORY: WBC 11.6, hemoglobin 10.9, hematocrit 34.3, platelets 238,000. Sodium 142, potassium 3.9, chloride 103, bicarbonate 28, BUN 8, creatinine 0.9, glucose 119, calcium 8.7. ASSESSMENT AND PLAN: 1. Left lower lobe pneumonia. Continue with levofloxacin. She is feeling better. White blood cells 11, upon admission was 13. I will get a new x-ray in the morning. 2. Mechanical fall without syncope. Aware. 3. Right ankle fracture, status post open reduction and internal fixation. Aware. Postoperative day #1. She seems to be doing fine. She is still in pain. We will continue to monitor. 4. Left humeral head fracture. Orthopedic Surgery is planning to do this as an outpatient. They will follow this patient up. 5. History of sleep apnea. Continue with CPAP machine. 6. Gastroesophageal reflux disease. Continue with PPI. DISPOSITION: Pending rehabilitation center placement. cc: Juan Francisco Rojas MD
[2019-03-08] MEDS ORDERED: OXY IR PO PRN (16:56)
[2019-03-08] MEDS: LEVAQUIN 750 MG/D5W 750 MG/150 ML IVPB IV SCH (18:34)
[2019-03-08] MEDS: SODIUM CHLORIDE 0.9% INJ PRN (20:14)
[2019-03-08] MEDS ORDERED: TORADOL IV ONE (22:28)
[2019-03-09] MEDS: DILAUDID IV PRN ×4 (01:44→11:41)
[2019-03-09] MEDS: ZOFRAN IV PRN ×4 (01:44→18:22)
[2019-03-09] MEDS: BENADRYL PO PRN (04:54)
[2019-03-09] MEDS: PROTONIX PO SCH (06:19)
[2019-03-09 06:46] LABS: BASO# 0.04 X1000 (0.0-0.2); BASO% 0.5 % (0.0-0.8); EOS# 0.17 X1000 (0.0-0.7); EOS% 1.9 % (0.0-10.0); HEMOGLOBIN 10.3 g/dL (12.0-16.0); IMM GRAN# 0.03 X1000 (0.0-0.04); IMM GRAN% 0.3 % (0.0-0.5); LYMPH# 2.71 X1000 (1.2-3.4); LYMPH% 30.6 % (20.5-51.1); MCH 27.3 PG (27-31); MCHC 32.2 g/dL (33-37); MCV 84.9 FL (81-99); MONO# 0.76 X1000 (0.11-0.59); MONO% 8.6 % (1.7-9.3); MPV 11.4 FL (7.4-10.4); NEUT# 5.15 X1000 (1.4-6.5); NEUT% 58.1 % (42.2-75.2); PLT 270 X1000 (130-400); RBC 3.77 XMIL (4.2-5.4); WBC 8.86 X1000 (4.8-10.8)
--- NOTE | 2019-03-09 07:10 | Diag Imaging Result Doc PS360 ---
EXAM: CHEST-PORTABLE 03/09/2019 HISTORY: dyspnea TECHNIQUE: AP portable at 0558 COMMENT: There is still some ill-defined opacity in the left lower lobe however the left heart border is now more well-defined than on 03/05/2019, otherwise are has been no significant change. IMPRESSION: Improved atelectasis in the lingula. Electronically signed by Darell Ojeda 03/09/2019 7:08 AM
[2019-03-09 07:22] LABS: AGAP 10; BUN 9 mg/dL (8-22); CALCIUM 8.5 mg/dL (8.8-10.2); CHLORIDE 101 mmol/L (98-107); COSMO 280; CREATININE 0.7 mg/dL (0.5-0.9); ESTIMATED GFR > 60; GLUCOSE 129 mg/dL (70-104); POTASSIUM 3.5 mmol/L (3.5-5.1); SODIUM 140 mmol/L (136-145); TCO2 29 mmol/L (25-35)
[2019-03-09] MEDS: NEURONTIN PO SCH ×3 (08:22→17:30)
[2019-03-09] MEDS: PERIDEX MT SCH ×2 (08:22→22:30)
[2019-03-09] MEDS ORDERED: NORCO-7.5 PO PRN (10:55)
[2019-03-09] MEDS: LOVENOX SUBQ SCH (12:43)
[2019-03-09] MEDS: DEMEROL PO PRN ×3 (14:40→22:30)
--- NOTE | 2019-03-09 16:48 | PROGRESS NOTE ---
DATE: 03/09/2019 SUBJECTIVE: This patient is lying in bed. She is complaining of severe left shoulder pain, she is not complaining too much of right ankle fracture the right ankle fracture that has been repaired, family members at the bedside. All their questions were answered. Hopefully tomorrow this patient will have a shoulder surgery, we will monitor. OBJECTIVE: Vital Signs: Temperature 98.5 degrees, pulse 80, respiratory rate 20, blood pressure 110/73, oxygen saturation 97 on nasal cannula. HEENT: Head normocephalic, no trauma. PERRLA. Neck: Supple. No JVD. No masses. Central trachea. Chest: Clear to auscultation. No wheezing. No rales. Some crepitus at the level of the left lower lung but it is getting better. Abdomen: Soft, nontender, nondistended. No hepatosplenomegaly. Extremities: She has splint on the right leg due to ankle fracture repair. She is able to wiggle her toes. I do not see any vascular or neurological problem. Her left shoulder is a little bit swollen and painful to palpation and mobilization. Neurological: This patient is alert, she is oriented x3. She is a bit sleepy probably due to pain medication. She is following commands but she has been confused on and off. LABORATORY: WBC 8.8, hemoglobin 10.3, hematocrit 32, platelets 270,000. Sodium 140, potassium 3.5, chloride 101, bicarbonate 29, BUN 9, creatinine 0.7, glucose 129, calcium 8.5. ASSESSMENT AND PLAN: 1. Left lower lobe pneumonia. Continue with levofloxacin. She is getting better. X-ray looks better as well, leukocyte count is normal today. 2. Mechanical fall without syncope aware. 3. Right ankle fracture status post open reduction and internal fixation aware, postoperative day #2, she seems to be doing fine. She is still complaining of some pain in that area. 4. Left humeral head fracture, orthopedic surgery is planning to do surgery in the morning 8 a.m., hopefully she will go for that procedure. She seems to be stable. 5. History of sleep apnea, continue with the CPAP machine. 6. Gastroesophageal reflux disease. Continue with PPI. cc: Juan Francisco Rojas MD
[2019-03-09] MEDS: LEVAQUIN 750 MG/D5W 750 MG/150 ML IVPB IV SCH (18:22)
--- NOTE | 2019-03-09 20:54 | ORTHOPAEDICS PROGRESS NOTE ---
DATE: 03/09/2019 The patient is a pleasant, 68-year-old female who is status post fall four days ago sustaining a left comminuted proximal humeral fracture three-part as well as a right bimalleolar ankle fracture. She has been in the hospital and underwent open reduction internal fixation right ankle per Dr. Liu on 03/07/2019. The original plan was to wait for the acute bleeding and swelling to improve and proceed on an elective basis regarding her left reverse total shoulder arthroplasty. However, given the patient's significant pain and discomfort with the left shoulder, the decision was made to proceed with left reverse total shoulder arthroplasty tomorrow. Risks and benefits of surgery were explained including risks of anesthesia, , bleeding, infection, failure to relieve pain, postoperative stiffness, nerve injury, blood clots, and other imponderables. All questions were answered. The patient and family agree with treatment plan. cc: Jabari Pike MD MTDD
[2019-03-09] MEDS: PHENERGAN IV PRN (22:34)
[2019-03-10] MEDS: ZOFRAN IV PRN ×2 (02:50→06:33)
[2019-03-10] MEDS: DILAUDID IV PRN ×2 (02:51→06:26)
[2019-03-10 05:58] LABS: BASO# 0.01 X1000 (0.0-0.2); BASO% 0.1 % (0.0-0.8); EOS# 0.26 X1000 (0.0-0.7); EOS% 3.6 % (0.0-10.0); HEMATOCRIT 32.2 % (37.0-47.0); HEMOGLOBIN 10.2 g/dL (12.0-16.0); IMM GRAN# 0.02 X1000 (0.0-0.04); IMM GRAN% 0.3 % (0.0-0.5); LYMPH# 1.58 X1000 (1.2-3.4); LYMPH% 22.1 % (20.5-51.1); MCH 26.8 PG (27-31); MCHC 31.7 g/dL (33-37); MCV 84.5 FL (81-99); MONO# 0.46 X1000 (0.11-0.59); MONO% 6.4 % (1.7-9.3); MPV 10.9 FL (7.4-10.4); NEUT# 4.82 X1000 (1.4-6.5); NEUT% 67.5 % (42.2-75.2); PLT 263 X1000 (130-400); RBC 3.81 XMIL (4.2-5.4); RDW 13.9 % (11.5-14.5); WBC 7.15 X1000 (4.8-10.8)
[2019-03-10] MEDS ORDERED: SODIUM CHLORIDE 0.9% ONE (06:28)
[2019-03-10] MEDS ORDERED: CYKLOKAPRON 1,000 MG/NS 2,000 MG/200 ML IVPB ONE (06:28)
[2019-03-10] MEDS ORDERED: TORADOL ONE (06:28)
[2019-03-10] MEDS ORDERED: DURAMORPH ONE (06:28)
[2019-03-10] MEDS ORDERED: VANCOMYCIN ONE (06:28)
[2019-03-10] MEDS ORDERED: MARCAINE 0.25% PF/EPI 1:200,000 ONE (06:28)
[2019-03-10] MEDS ORDERED: EXPAREL 1.3% ONE (06:29)
[2019-03-10] MEDS ORDERED: NEOSPORIN G.U. IRRIGANT ONE (06:29)
[2019-03-10 06:31] LABS: AGAP 8; BUN 10 mg/dL (8-22); CALCIUM 8.4 mg/dL (8.8-10.2); CHLORIDE 103 mmol/L (98-107); COSMO 278; CREATININE 0.6 mg/dL (0.5-0.9); ESTIMATED GFR > 60; GLUCOSE 127 mg/dL (70-104); POTASSIUM 3.8 mmol/L (3.5-5.1); SODIUM 139 mmol/L (136-145); TCO2 28 mmol/L (25-35)
[2019-03-10] MEDS ORDERED: DIPRIVAN 1% ONE (07:37)
[2019-03-10] MEDS ORDERED: FENTANYL ONE (08:18)
[2019-03-10] MEDS ORDERED: QUELICIN (DOSE) ONE (08:20)
[2019-03-10] MEDS ORDERED: XYLOCAINE-MPF 2% ONE (08:20)
[2019-03-10] MEDS ORDERED: ZEMURON ONE (08:20)
[2019-03-10] MEDS ORDERED: ZOFRAN ONE (08:20)
[2019-03-10] MEDS ORDERED: DECADRON ONE (08:20)
[2019-03-10] MEDS: PROTONIX PO SCH (08:21)
[2019-03-10] MEDS ORDERED: KEFZOL 2 GM/D5W 2 GM/50 ML IVPB ONE (08:27)
[2019-03-10 09:18] LABS: URINE SOURCE CATH
[2019-03-10 09:30] LABS: BILIRUBIN URINE NEGATIVE (NEGATIVE); BLOOD URINE NEGATIVE (NEGATIVE); COLOR STRAW; GLUCOSE URINE NEGATIVE (NEGATIVE); KETONE URINE NEGATIVE (NEGATIVE); LEUKOCYTES URINE NEGATIVE (NEGATIVE); NITRITE URINE NEGATIVE (NEGATIVE); PROTEIN URINE NEGATIVE (NEGATIVE); TURBIDITY URINE CLEAR (CLEAR); UROBILINOGEN URINE NORMAL (NORMAL)
[2019-03-10 09:32] LABS: UR EPITHELIAL CELLS <10 /HPF (<10); URINE BACTERIA NEGATIVE /HPF; URINE RBC <10 /HPF (<10); URINE WBC <10 /HPF (<10)
--- NOTE | 2019-03-10 09:32 | ORTHOPAEDICS PROGRESS NOTE ---
DATE: 03/10/2019 SUBJECTIVE: Ms Mansfield lying in bed this morning. Still hurting a pretty good bit in the shoulder. OBJECTIVE: Left upper extremity exam, she has some swelling throughout. She remains neurovascularly intact left upper extremity. Right lower extremity exam, splint is clean, dry, and intact. She is able to move the toes well. ASSESSMENT: 1. Left proximal humerus fracture. 2. Right ankle fracture status post open reduction and internal fixation. PLAN: Ms. Mansfield is going to go to surgery this morning by Dr. Pike for left reverse shoulder arthroplasty. She is NPO this morning from the right lower extremity standpoint. She is nonweightbearing right lower extremity. cc: Reagan Liu MD
[2019-03-10] MEDS ORDERED: ROBINUL ONE (09:36)
[2019-03-10] MEDS ORDERED: OFIRMEV 1000 MG/ISOTONIC SOLN 1,000 MG/100 ML BOTTLE ONE (09:36)
[2019-03-10] MEDS ORDERED: DILAUDID ONE (09:36)
[2019-03-10] MEDS ORDERED: NEOSTIGMINE ONE (09:36)
[2019-03-10] MEDS: DILAUDID ONE ×2 (10:00→10:03)
[2019-03-10] MEDS ORDERED: PHENERGAN ONE (10:15)
[2019-03-10] MEDS ORDERED: NS 1,000 ML ONE (10:16)
[2019-03-10] MEDS: NEURONTIN PO SCH ×3 (10:59→16:07)
[2019-03-10] MEDS: NS 1,000 ML IV SCH ×2 (11:00→22:34)
[2019-03-10] MEDS: PERIDEX MT SCH ×2 (11:00→22:32)
--- NOTE | 2019-03-10 11:09 | OPERATIVE NOTE ---
PROCEDURE DATE: 03/10/2019 PREOPERATIVE DIAGNOSIS: Left comminuted proximal humeral fracture. POSTOPERATIVE DIAGNOSIS: Left comminuted proximal humeral fracture. PROCEDURE: Left reverse shoulder arthroplasty with DePuy Delta Xtend size 10 cemented stem, a +9 humeral spacer with a +9 humeral cup, and a 38 eccentric Glenosphere and a standard Metaglene. SURGEON: Jabari Pike MD. COTTON TIER: Reagan Liu MD. SECOND DIRECTOR OF REHABILITATION AND WELLNESS: Trace Guzmán. ANESTHESIA: General. IV FLUIDS: 1600 mL lactated Ringer's. ESTIMATED BLOOD LOSS: 100 mL. COMPLICATIONS: None. INDICATION: The patient is a 68-year-old female who is status post fall on 03/05/2019, and presented to the emergency room. X-rays were obtained revealing a left bimalleolar ankle fracture as well as a left comminuted proximal humeral fracture. Patient did undergo an open reduction and internal fixation of the left ankle per Dr. Liu. She has continued to have pain and discomfort in the left shoulder and a recommendation to proceed with left reverse shoulder arthroplasty was offered. Risks and benefits of surgery were explained including the risks of anesthesia, , bleeding, infection, failure to relieve pain, postoperative stiffness, nerve injury, blood clots, and other imponderables. All questions were answered and the patient and family agree with treatment plan. DETAILS OF OPERATION: The patient was taken to the operating room and placed supine on the operating table. Once adequate anesthesia was obtained, the patient was placed in semi-Metz beach-chair position. The left shoulder was subsequently prepped and draped in usual sterile fashion. A standard deltopectoral incision was made with skin knife. Medial and lateral skin envelopes were developed. Hemostasis was obtained using electrocautery. The deltopectoral interval was then developed and Ellison retractor was placed. The conjoint tendon was retracted with the Ellison retractor. The proximal humerus was then identified as well as the fracture site. The humeral head along with the greater and lesser tuberosities were excised with a deep knife. After removing all the bone fragments, attention was then turned to the glenoid. Circumferential dissection was then performed with a deep knife. A guide was then placed in the glenoid and guidepin was placed. Reaming was then conducted. The central hole was then dilated. The wound was copiously irrigated. A standard Metaglene was then impacted in position. Two locking screws were placed and 2 nonlocking screws were placed and the patient had good fixation. The wound was copiously irrigated once again. A 38 eccentric Glenosphere was then placed with the eccentricity placed inferiorly. Attention was then turned to the proximal humerus where intramedullary reaming was then conducted in preparation for size 10. A trial stem size was then placed to determine the appropriate height. After this had been performed, vancomycin was mixed in the cement on back table. Copious irrigation of the intramedullary canal was conducted. After the cement had been prepared, the cement was then placed in the intramedullary canal. A size 10 Delta Xtend cemented stem was then placed in approximately 10 to 15 degrees of retroversion and was appropriate height. After the cement had cured, trial cup sizes were performed and a +9 humeral spacer with a +9 humeral cup appeared to be the correct size. The wound was copiously irrigated. The spacer was placed and again, the +9 humeral cup appeared be the correct size. The trial cup was removed. The wound was copiously irrigated. A 38 +9 humeral cup was then placed. The shoulder was reduced, carried through range of motion, had excellent stability and range of motion. Exparel was placed in the deep soft tissue, as well as the subcutaneous tissue. Copious irrigation then performed once again with antibiotic pulsatile lavage. 2-0 Vicryl was then used to repair the subcutaneous tissue, followed by running 2-0 Prolene. Benzoin and Steri-Strips were applied. Adaptic, sterile 4 x 4's, ABD pad, and tape applied to the left shoulder. A shoulder immobilizer was then placed. The patient tolerated the procedure well and was transferred to the recovery room in stable condition. cc: Jabari Pike MD MTDD
[2019-03-10] MEDS ORDERED: ZOFRAN IV PRN (11:27)
[2019-03-10] MEDS ORDERED: MILK OF MAGNESIA PO PRN (11:27)
[2019-03-10] MEDS ORDERED: MORPHINE IV PRN (11:27)
[2019-03-10] MEDS ORDERED: TYLENOL PO SCH (11:30)
[2019-03-10] MEDS ORDERED: HALDOL IV PRN (11:30)
--- NOTE | 2019-03-10 12:00 | Diag Imaging Result Doc PS360 ---
EXAM: SHOULDER 1 VIEW LEFT INDICATION: l reverse tsa TECHNIQUE: One view COMPARISON: 03/05/2019 FINDINGS: There has been a recent left shoulder arthroplasty during the interval. The arthroplasty hardware is in the expected position. There is no evidence of periprosthetic fracture. Surrounding soft tissues are grossly unremarkable by plain radiograph. IMPRESSION: Satisfactory postoperative left shoulder. Electronically signed by Benjamin Hewitt 03/10/2019 11:57 AM
[2019-03-10] MEDS: KEFZOL 2 GM/D5W 2 GM/50 ML IVPB IV SCH (16:07)
--- NOTE | 2019-03-10 16:36 | PROGRESS NOTE ---
DATE: 03/10/2019 SUBJECTIVE: This patient just had a left shoulder surgery today. She seems to be stable, vital signs are good, family members at the bedside. She is slightly somnolent. She is not complaining of pain at this moment. OBJECTIVE: Vital Signs: Temperature 97.8, pulse 92 respiratory rate 18, blood pressure 127/72, oxygen saturation 98%. HEENT: Head normocephalic. No trauma. PERRLA. Neck: Supple. No JVD, no masses. Central trachea. Chest: Clear to auscultation. No wheezing. No rales. Some crepitus at the level of the left lower lung. Abdomen: Soft, nontender. Extremities: She has a splint at the level of the right leg due to ankle fracture repair, and also she has a left shoulder dressing that looks clean. It is a little bit painful to palpation. Neurological: This patient is sleepy but arousable. She moves all 4 extremities. She is able to wiggle her toes and fingers. I do not see any vascular problems or neurological problems. LABORATORY: WBC 7.1, hemoglobin 10.2, hematocrit 32.2, platelets 263, sodium 139, potassium 3.8, chloride 103, bicarbonate 28, BUN 10, creatinine 0.6, glucose 127, calcium 8.4. ASSESSMENT AND PLAN: 1. Left lower lobe pneumonia. X-ray looks better. Leukocyte count stable, normal. Continue with levofloxacin. 2. Mechanical fall with without syncope. Aware. 3. Right ankle fracture, status post open reduction and internal fixation, aware, postoperative day number 3. She seems to be doing fine. She is not complaining of pain in that area at this moment. 4. Left humeral head fracture, status post arthroplasty today. It looks like she tolerated the procedure well. Will continue to monitor. 5. History of sleep apnea. Continue with the CPAP machine. 6. Gastroesophageal reflux disease. Continue with proton pump inhibitors. cc: Juan Francisco Rojas MD
[2019-03-10] MEDS: TYLENOL PO SCH (18:08)
[2019-03-10] MEDS: LOVENOX SUBQ SCH (18:08)
[2019-03-10] MEDS: COLACE PO SCH (22:32)
[2019-03-11] MEDS: DILAUDID IV PRN
[2019-03-11] MEDS: BENADRYL PO PRN ×2 (00:24→23:54)
[2019-03-11] MEDS: TYLENOL PO SCH ×3 (04:52→17:42)
[2019-03-11] MEDS: PROTONIX PO SCH ×2 (05:49→06:45)
[2019-03-11 06:11] LABS: AGAP 12; BUN 8 mg/dL (8-22); CALCIUM 8.3 mg/dL (8.8-10.2); CHLORIDE 106 mmol/L (98-107); COSMO 279; CREATININE 0.6 mg/dL (0.5-0.9); ESTIMATED GFR > 60; GLUCOSE 115 mg/dL (70-104); POTASSIUM 3.7 mmol/L (3.5-5.1); SODIUM 140 mmol/L (136-145); TCO2 22 mmol/L (25-35)
[2019-03-11] MEDS: FERROUS SULFATE PO SCH (08:40)
--- NOTE | 2019-03-11 08:40 | ORTHOPAEDICS PROGRESS NOTE ---
DATE: 03/11/2019 SUBJECTIVE: Ms. Mansfield lying in bed this morning. Pain seems fairly well controlled. She was on a liquid diet yesterday secondary to having a little bit of nausea. She is complaining that she has not gone to the bathroom in several days for a bowel movement. OBJECTIVE: Extremities: On left upper extremity exam, dressing is clean, dry, and intact. She is neurovascularly intact to the left upper. On right lower extremity exam, splint is clean, dry, and intact. She is able to dorsiflex and plantar flex the toes well. She has good sensation to light touch to the toes. ASSESSMENT: 1. Status post left reverse total shoulder arthroplasty for fracture on 03/10/2019. 2. Status post right ankle open reduction and internal fixation. On 03/07/2019. PLAN: Ms. Mansfield is still nonweightbearing on the right lower extremity. I do want her getting up with physical therapy now since her shoulder has been fixed. I also discussed with her about constipation, talked with her nursing team as well. We will advance her diet today, back her off some of the pain medicine and start some stool softeners to get her to have a bowel movement. We will continue to follow. We will get Commercial Manager team on board tomorrow working on rehab placement. cc: Reagan Liu MD
[2019-03-11] MEDS: NEURONTIN PO SCH ×3 (08:41→16:59)
[2019-03-11] MEDS: KEFZOL 2 GM/D5W 2 GM/50 ML IVPB IV SCH ×2 (08:41)
[2019-03-11] MEDS: PERIDEX MT SCH ×2 (08:41→22:33)
[2019-03-11] MEDS: TORADOL PO PRN ×3 (09:37→23:54)
[2019-03-11] MEDS: NS 1,000 ML IV SCH ×2 (10:54→22:32)
[2019-03-11] MEDS: DULCOLAX PR SCH ×2 (13:22→22:33)
[2019-03-11] MEDS: LOVENOX SUBQ SCH (13:22)
--- NOTE | 2019-03-11 14:43 | PROGRESS NOTE ---
DATE: 03/11/2019 SUBJECTIVE: This patient is lying comfortably in bed. She is complaining of constipation, family members at the bedside. All their questions were answered. OBJECTIVE: Vital Signs: Temperature 98.4, pulse 91, respiratory rate 16, blood pressure 126/64. Oxygen saturation 93% on room air. HEENT: Head normocephalic, no trauma. PERRLA. Neck: Supple. No JVD. No masses. Central trachea. Chest: Clear to auscultation, some crepitus at the level of the left lower lung base. Abdomen: Soft, nontender, nondistended. No hepatosplenomegaly. Extremities: She has splint at the level of the right leg due to an ankle fracture repair. On shoulder she has a left shoulder dressing that looks clean and dry, is a little bit painful to palpation and mobilization. Neurologic: This patient is alert. She is oriented x 3. No focal neurological deficits. I do not see any vascular or neurological problems at this moment. LABORATORY: Hematocrit 30.9. Sodium 140, potassium 3.7, chloride 22, bicarbonate 20, chloride 106, bicarbonate 22, BUN 8, creatinine 0.6, glucose 115, calcium 8.3. ASSESSMENT AND PLAN: 1. Left lower lobe pneumonia, x-ray is better. Leukocyte count stable, normal. Continue with levofloxacin. She was treated with levofloxacin which has been stopped already. 2. Mechanical fall without syncope, aware. 3. Right ankle fracture, status post open reduction and internal fixation, postoperative day #4. 4. She seems to be doing fine. Continue physical therapy. Orthopedic Surgery on board. 5. Left humeral head fracture status post arthroplasty, postoperative day #1. She is still complaining of pain. Continue pain medication. 6. Constipation. I have placed this patient on twice a day suppository, continue with stool softeners as well. 7. History of sleep apnea. Continue with the CPAP machine. Continue with the CPAP machine. 8. Gastroesophageal reflux disease. Continue with PPI. cc: Juan Francisco Rojas MD
[2019-03-11] MEDS: COLACE PO SCH (22:32)
[2019-03-12] MEDS: TYLENOL PO SCH ×4 (01:26→17:30)
[2019-03-12] MEDS: NS 1,000 ML IV SCH ×2 (03:29→18:29)
[2019-03-12] MEDS: PROTONIX PO SCH (06:30)
[2019-03-12] MEDS: TORADOL PO PRN ×3 (06:30→22:10)
[2019-03-12 06:53] LABS: AGAP 9; BUN 8 mg/dL (8-22); CALCIUM 8.2 mg/dL (8.8-10.2); CHLORIDE 108 mmol/L (98-107); COSMO 282; CREATININE 0.5 mg/dL (0.5-0.9); ESTIMATED GFR > 60; GLUCOSE 100 mg/dL (70-104); POTASSIUM 3.4 mmol/L (3.5-5.1); SODIUM 142 mmol/L (136-145); TCO2 25 mmol/L (25-35)
[2019-03-12] MEDS: ZOFRAN IV PRN ×2 (06:59→12:57)
--- NOTE | 2019-03-12 07:16 | ORTHOPAEDICS PROGRESS NOTE ---
DATE: 03/12/2019 SUBJECTIVE: The patient is a pleasant, 68-year-old female who is 2 days status post left reverse shoulder arthroplasty. She is currently resting comfortably. OBJECTIVE: Her left upper extremity dressing is intact. She is neurovascularly intact distally and flexing all of her fingers. Her hematocrit is 30.9. IMPRESSION: 1. Postoperative day #2 status post left reverse total shoulder arthroplasty, 03/10/2019. 2. Status post open reduction and internal fixation of right ankle, 03/07/[address] Liu. PLAN: At this point, we will change her dressing today of the left shoulder. We will plan on passive range of motion exercises for the left shoulder and social studies teacher have been consulted for discharge planning. cc: Jabari Pike MD
--- NOTE | 2019-03-12 07:48 | ORTHOPAEDICS PROGRESS NOTE ---
DATE: 03/12/2019 SUBJECTIVE: Ms. Mansfield is lying in bed this morning. Pain seems well controlled. OBJECTIVE: On left upper extremity exam, the dressing is clean, dry, and intact. She is neurovascularly intact to the left upper extremity. On right lower extremity exam, the splint is clean, dry, and intact. Toes are moving up and down. Good capillary refill to all the toes. Good sensation to light touch to the toes. ASSESSMENT: 1. Status post left reverse total shoulder arthroplasty. 2. Status post open reduction and internal fixation of ankle. PLAN: Ms. Mansfield is nonweightbearing to the right lower extremity and left upper extremity. We will get social service coordinator involved today for discharge planning. Physical therapy will continue to help her move and get mobilized. I will need to see her in about a week in clinic. cc: Reagan Liu MD
[2019-03-12] MEDS ORDERED: KLOR-CON PO ONE (09:11)
--- NOTE | 2019-03-12 10:37 | PROGRESS NOTE ---
DATE: 03/12/2019 SUBJECTIVE: The patient reports feeling fine. Some itching with the splint that she has. Denies any other complaints. OBJECTIVE: Vital Signs: Temperature 98.3 degrees, heart rate 80, respiratory rate 16, blood pressure 136/60, O2 saturation 93% on 2 L nasal cannula. General: This is a 68-year-old female lying in bed, in no acute distress. Cardiovascular: S2 heard. No murmurs, gallops, or rubs. Regular rate. Respiratory: Minimal rhonchi in the left lower base. Patient not using any accessory muscles or having work of breathing. Abdomen: Soft. Nontender to palpation. Bowel sounds present. No organomegaly. Extremities: No clubbing. No cyanosis. There is a splint on the right leg due to ankle fracture. On the shoulder, she has a left shoulder dressing that looks clean and dry. Neurological: Patient is alert and oriented x3. Moves 4 extremities. LABORATORY DATA: Hematocrit 29 from today. Potassium 3.4. ASSESSMENT AND PLAN: 1. Left lower lobe pneumonia. The patient clinically is doing fine. The patient has been treated with Levaquin but considering his improvement in x-ray and also in clinical situation, that medication has been stopped. 2. Mechanical fall without syncope, aware. 3. Right ankle fracture status post open reduction internal fixation, postoperative day 5. Orthopedics following. 4. Left humeral head fracture status post arthropathy postoperative day #2. Pain is better controlled today. We will continue with the same management. 5. Constipation. The patient is on stool softeners. We will continue with the same medication. 6. History of sleep apnea. Aware. We will continue with CPAP at 9. 7. Gastroesophageal reflux disease. We will continue with Protonix. 8. Disposition. At this point, patient is medically stable and waiting for a rehab bed and insurance precertification. cc: Berlin Sorenson MD
[2019-03-12] MEDS: DULCOLAX PR SCH ×2 (10:43→21:00)
[2019-03-12] MEDS: NEURONTIN PO SCH ×3 (11:10→17:31)
[2019-03-12] MEDS: SODIUM CHLORIDE 0.9% INJ PRN (11:10)
[2019-03-12] MEDS: PHENERGAN IV PRN (11:10)
[2019-03-12] MEDS: ZYRTEC PO SCH (11:10)
[2019-03-12] MEDS: OXY IR PO PRN (11:11)
[2019-03-12] MEDS: FERROUS SULFATE PO SCH (11:11)
[2019-03-12] MEDS: PERIDEX MT SCH ×2 (11:11→22:15)
[2019-03-12] MEDS: LOVENOX SUBQ SCH (12:57)
[2019-03-12] MEDS: COLACE PO SCH (22:15)
[2019-03-13] MEDS: TYLENOL PO SCH ×3 (00:17→14:27)
[2019-03-13] MEDS: PHENERGAN IV PRN (00:18)
[2019-03-13 06:10] LABS: BASO# 0.02 X1000 (0.0-0.2); BASO% 0.3 % (0.0-0.8); EOS# 0.37 X1000 (0.0-0.7); EOS% 4.7 % (0.0-10.0); HEMATOCRIT 31.5 % (37.0-47.0); HEMOGLOBIN 10.1 g/dL (12.0-16.0); IMM GRAN# 0.02 X1000 (0.0-0.04); IMM GRAN% 0.3 % (0.0-0.5); LYMPH# 1.61 X1000 (1.2-3.4); LYMPH% 20.6 % (20.5-51.1); MCH 27.1 PG (27-31); MCHC 32.1 g/dL (33-37); MCV 84.5 FL (81-99); MONO# 0.54 X1000 (0.11-0.59); MONO% 6.9 % (1.7-9.3); NEUT# 5.25 X1000 (1.4-6.5); NEUT% 67.2 % (42.2-75.2); PLT 315 X1000 (130-400); RBC 3.73 XMIL (4.2-5.4); RDW 14.2 % (11.5-14.5); WBC 7.81 X1000 (4.8-10.8)
[2019-03-13 06:37] LABS: AGAP 10; BUN 9 mg/dL (8-22); CALCIUM 8.4 mg/dL (8.8-10.2); CHLORIDE 105 mmol/L (98-107); COSMO 278; CREATININE 0.5 mg/dL (0.5-0.9); ESTIMATED GFR > 60; GLUCOSE 101 mg/dL (70-104); POTASSIUM 3.6 mmol/L (3.5-5.1); SODIUM 140 mmol/L (136-145); TCO2 25 mmol/L (25-35)
[2019-03-13] MEDS: PROTONIX PO SCH (07:52)
--- NOTE | 2019-03-13 13:32 | ORTHOPAEDICS PROGRESS NOTE ---
DATE: 03/13/2019 SUBJECTIVE: Ms. Mansfield lying in bed. Her pain seems to be better controlled overall. She states she is feeling much better. OBJECTIVE DATA: Left upper extremity exam: The dressing is clean, dry, and intact. She is neurovascularly intact to the left upper extremity. On right lower extremity exam the splint is clean, dry, and intact. She is able to move the toes. She has good capillary refill. She has good sensation to light touch. ASSESSMENT: 1. Status post left reverse total shoulder arthroplasty. 2. Status post open reduction internal fixation ankle. PLAN: Ms Mansfield will continue to be nonweightbearing to the right lower extremity and left upper extremity. They are working to get her discharged to a rehab center. They are going to continue to work on mobilizing with her. We know this is difficult due to her weightbearing restrictions. We do want to follow up with her in 1 week in clinic. She will need to follow up with both Dr. Liu and Dr. Pike. Dr. Pike will usually see the shoulders in 10 to 14 days postoperatively. If we need to do her appointment on the same day with Dr. Pike to make things easier that is fine. Dictated by ADY Felder for Reagan Liu MD cc: ADY Felder MD
[2019-03-13] MEDS: LOVENOX SUBQ SCH (14:27)
[2019-03-13] MEDS: NEURONTIN PO SCH ×3 (14:27→17:06)
[2019-03-13] MEDS: PERIDEX MT SCH ×2 (14:27→20:14)
[2019-03-13] MEDS: ZYRTEC PO SCH (14:27)
[2019-03-13] MEDS: FERROUS SULFATE PO SCH (14:28)
[2019-03-13] MEDS: DULCOLAX PR SCH ×2 (14:28→20:15)
--- NOTE | 2019-03-13 15:30 | PROGRESS NOTE ---
DATE: 03/13/2019 SUBJECTIVE: Patient reports feeling okay. No fever or chills noted. OBJECTIVE: Vital Signs: Temperature 98.3. Heart rate 100. Respiratory rate 18, blood pressure 117/78, O2 saturation 96% on room air. General: This is a 68-year-old female lying in bed, in no acute distress. Cardiovascular: S1, S2 heard. No murmurs, gallops, or rubs. Regular rate and rhythm. Respiratory: Rhonchi in the left lower base, definitely better in comparing with yesterday. Patient is not using any accessory muscles or having work of breathing. Abdomen: Soft. Nontender to palpation. Bowel sounds present. No organomegaly. Extremities: No clubbing, cyanosis, or edema. There is a splint on the right leg due to ankle fracture and the shoulder she had left shoulder dressing that looks clean and dry. Neurological: Patient is alert and oriented x3. Moves 4 extremities. LABORATORY DATA: White cell count 7.31, hemoglobin 10.1, hematocrit 31.5, platelets 315,000. BMP is completely unremarkable. ASSESSMENT AND PLAN: 1. Left lower lobe pneumonia, resolved. 2. Mechanical fall without syncope. Aware. 3. Right ankle fracture status post open reduction and internal fixation, postoperative day #6. Orthopedics following this patient. The patient has been cleared by them to go to rehab. 4. Left humeral head fracture status post arthroscopy postoperative day#3. 5. The patient reports pain is under control. We will continue with same management. 6. Constipation. We will continue with stool softeners. 7. History of sleep apnea. We will continue with CPAP at night. 8. Disposition. At this point, patient is medically stable. Awaiting a precertification from her insurance company to start looking for a rehab bed for her. cc: Berlin Sorenson MD
[2019-03-13] MEDS: COLACE PO SCH (20:15)
[2019-03-13] MEDS: TORADOL PO PRN (23:19)
[2019-03-14] MEDS: TYLENOL PO SCH ×5 (01:34→23:08)
[2019-03-14 05:47] LABS: BASO# 0.03 X1000 (0.0-0.2); BASO% 0.4 % (0.0-0.8); EOS# 0.43 X1000 (0.0-0.7); EOS% 5.2 % (0.0-10.0); HEMOGLOBIN 10.2 g/dL (12.0-16.0); IMM GRAN# 0.03 X1000 (0.0-0.04); IMM GRAN% 0.4 % (0.0-0.5); LYMPH# 1.74 X1000 (1.2-3.4); LYMPH% 20.9 % (20.5-51.1); MCHC 31.9 g/dL (33-37); MCV 84.7 FL (81-99); MONO# 0.52 X1000 (0.11-0.59); MONO% 6.2 % (1.7-9.3); MPV 10.6 FL (7.4-10.4); NEUT# 5.58 X1000 (1.4-6.5); NEUT% 66.9 % (42.2-75.2); PLT 332 X1000 (130-400); RBC 3.78 XMIL (4.2-5.4); RDW 14.2 % (11.5-14.5); WBC 8.33 X1000 (4.8-10.8)
[2019-03-14 06:12] LABS: AGAP 9; BUN 11 mg/dL (8-22); CALCIUM 8.5 mg/dL (8.8-10.2); CHLORIDE 105 mmol/L (98-107); COSMO 282; CREATININE 0.6 mg/dL (0.5-0.9); ESTIMATED GFR > 60; GLUCOSE 116 mg/dL (70-104); POTASSIUM 3.4 mmol/L (3.5-5.1); SODIUM 141 mmol/L (136-145); TCO2 27 mmol/L (25-35)
[2019-03-14] MEDS: PROTONIX PO SCH (06:33)
[2019-03-14] MEDS: NEURONTIN PO SCH ×3 (08:51→21:06)
[2019-03-14] MEDS: ZYRTEC PO SCH (08:51)
[2019-03-14] MEDS: PERIDEX MT SCH ×2 (08:52→21:03)
[2019-03-14] MEDS: DULCOLAX PR SCH ×2 (08:54→21:03)
[2019-03-14] MEDS: FERROUS SULFATE PO SCH (08:54)
--- NOTE | 2019-03-14 11:18 | PROGRESS NOTE ---
DATE: 03/14/2019 SUBJECTIVE: Patient is feeling fine. Pain is under control. No fever or chills reported. OBJECTIVE: Vital Signs: Temperature 98.2 degrees, heart rate 88, respiratory rate 20, blood pressure 134/91 and O2 saturation 98% on room air. General: On examination, this is a 68-year- old female lying in bed in no acute distress. Cardiovascular: S1, S2 heard. No murmurs, gallops, or rubs. Regular rate and rhythm. Respiratory: There are minimal rhonchi in the left lower base. Patient is not using any accessory muscles or having work of breathing. Abdomen: Soft, nontender to palpation. Bowel sounds present. No organomegaly. Extremities: No clubbing, cyanosis, or edema. Peripheral pulses present in both legs. There is a splint on the right leg due to an ankle fracture. In the shoulder, he had shoulder sling, and also dressing that looks clean and dry. Neurological: Patient alert and oriented x3. Moves all 4 extremities. LABORATORY DATA: Reviewed. ASSESSMENT AND PLAN: 1. Left lower lobe pneumonia resolved. 2. Mechanical fall without syncope aware. 3. Right ankle fracture status post open reduction internal fixation postoperative day #7. Orthopedics following this patient. She has been cleared by them to go to rehab. 4. Left humeral head fracture status post arthroscopy postop day #4 as we mentioned above. 5. Constipation. We will continue with stool softeners. 6. History of sleep apnea. We will continue with CPAP at night. 7. Disposition: The patient is medically stable. I have talked with one off premise service representative of his insurance company who has approved [facility] for her. We will start looking for a bed now, and social welfare administrator has been already notified. cc: Berlin Sorenson MD
[2019-03-14] MEDS: LOVENOX SUBQ SCH (13:53)
[2019-03-14] MEDS: COLACE PO SCH (21:03)
[2019-03-15] MEDS: OXY IR PO PRN (00:38)
[2019-03-15] MEDS: DEMEROL PO PRN (00:44)
[2019-03-15] MEDS: PROTONIX PO SCH (06:07)
[2019-03-15] MEDS: TYLENOL PO SCH (06:07)
[2019-03-15 06:23] LABS: AGAP 10; BUN 11 mg/dL (8-22); CALCIUM 8.4 mg/dL (8.8-10.2); CHLORIDE 106 mmol/L (98-107); COSMO 283; CREATININE 0.6 mg/dL (0.5-0.9); ESTIMATED GFR > 60; GLUCOSE 111 mg/dL (70-104); POTASSIUM 3.3 mmol/L (3.5-5.1); SODIUM 142 mmol/L (136-145); TCO2 26 mmol/L (25-35)
[2019-03-15] MEDS: NEURONTIN PO SCH (08:53)
[2019-03-15] MEDS: ZYRTEC PO SCH (08:53)
[2019-03-15] MEDS: PERIDEX MT SCH (08:53)
[2019-03-15] MEDS: FERROUS SULFATE PO SCH (08:53)
[2019-03-15] MEDS: DULCOLAX PR SCH (08:54)
[2019-03-15] MEDS ORDERED: KLOR-CON PO SCH (10:30)
--- NOTE | 2019-03-15 11:26 | DISCHARGE SUMMARY ---
ADMISSION DATE: 03/05/2019 DISCHARGE DATE: 03/15/2019 DISCHARGE DISPOSITION: [facility]. DISCHARGE CONDITION: Hemodynamically stable. Patient is alert and oriented x3. Sitting in the chair. She is nonweightbearing on the right lower extremity and left upper extremity. She is alert and oriented x3. Denies any complaints except for mild pain at the time of physical exertion. CONSULTATION DURING HOSPITALIZATION: Orthopedics, Dr. Pike, and orthopedics, Dr. Liu. DISCHARGE DIAGNOSES: 1. Left lower lobe pneumonia. 2. Mechanical fall without syncope. 3. Comminuted left humeral head fracture. 4. Right side distal fibular fracture. 5. Obstructive sleep apnea. PROCEDURES DURING HOSPITALIZATION: 1. On 03/07/2019, patient underwent right open reduction and internal fixation of distal fibula and right deltoid repair. 2. On 03/10/2019, patient underwent left reverse shoulder arthroplasty with DePuy Delta XTEND size 10 cemented stem, +9 humeral spacer with +9 humeral cup, 38 eccentric Glenosphere, and a standard metaglene. VITALS: At the time of discharge, temperature 98.4 degrees, pulse 91, respiratory rate 20, blood pressure 127/70, saturating 97% on room air. PHYSICAL EXAMINATION: General: The patient does not appear in any acute distress. Oral cavity is moist. Lungs: Air entry bilaterally equal. No wheeze, rhonchi, crackles. Cardiovascular: S1, S2 normal. No murmur or gallop. Abdomen: Soft, nontender. No lower extremity edema. She has a bandage around her right lower extremity and she has a sling of her left upper extremity. DISCHARGE MEDICATIONS: Gabapentin 300 mg t.i.d., pantoprazole 40 mg daily, vitamin B12 1000 mcg daily, docusate sodium 200 mg at nighttime, ferrous sulfate 325 mg p.o. with breakfast, oxycodone 5 mg every 8 hours as needed for pain more than 7/10 (10 tablets have been prescribed), acetaminophen 1000 mg q.8 hours for pain less than 7/10. SIGNIFICANT LABS DURING HOSPITAL ADMISSION: On admission, patient did have leukocytosis of 13,000 which at the time of discharge was 8.3. At the time of discharge, her hemoglobin was 10.2, platelets 332,000. Her potassium was 3.3, which was being repleted. Her kidney function was normal. MICROBIOLOGY: Urine culture and sputum culture did not have any growth. SIGNIFICANT IMAGING DURING HOSPITAL ADMISSION: Ankle x-ray on March 05 had distal fibular fracture. Shoulder x-ray had comminuted humeral head and neck fracture. Chest x-ray had left basilar pneumonia. Shoulder x-ray on March 10 had satisfactory postoperative left shoulder. HOSPITAL COURSE SUMMARY: Ms. Mansfield is a 68-year-old, lady who presented on 03/05/2019 after a mechanical fall. She was found to have right-sided distal fibular fracture as well as comminuted humeral head and neck fracture on the left. The hospitalist team was consulted for further management. At the time of hospitalist team's evaluation, she was also complaining of a cough with expectoration which has been ongoing for 2 weeks and the chest x-ray performed had suggested left lower lobe pneumonia. She was treated with intravenous levofloxacin, following which her pneumonia had improved and she was breathing well on room air without any persistent cough. For her fracture, she underwent open reduction and internal fixation of her right lower extremity fibular fracture and reverse arthroplasty of left shoulder, which she tolerated well. Her postoperative course was essentially unremarkable. At the time of discharge, the patient was hemodynamically stable. Considering her significant fracture and nonweightbearing status, rehab was recommended. The hospitalist team had talked with the patient's insurance and she ultimately get approval for further rehab and she will be transferred. The patient was advised to follow up and establish care with a lung doctor for her history of obstructive sleep apnea for which she is using CPAP, and follow up with the orthopedic doctors in about 2 weeks. TIME SPENT: More than 30 minutes were spent in discharging the patient. All of her questions were answered. cc: Arturo Acosta MD
[2019-03-15 12:30] VITALS: BP 128/72
== END 2019-03-15 13:29 | DRG 483 ==
LOC: ED 14:51 → 4N 19:33 → SUATTDRO 19:33
PROVIDERS: ATTEND Internal Medicine
CPT/HCPCS: 71010; 71045; 73020; 73030; 73610; 76000; 80048; 80053; 81001; 83735; 84134; 85014; 85025; 85610; 85730; 86850; 86900; 86901; 87070; 87088; 87205; 87449; 87899; 88304; 88311; 89220; 93005; 94761; 94799; 96372; 96374; 96375; 96376; 97110; 97162; 97166; 97530; 97535; 99285; A9270; C9290; J0131; J0330; J0690; J1100; J1170; J1650; J1885; J1956; J2274; J2275; J2405; J2550; J3010; J3370; J7030; J7120; Q9974; S0020